=== PATIENT | male | born 1990 | race Caucasian/White ===

== ENCOUNTER 2016-07-11 17:21 | Emergency (ER) | payer SELFPAY ==
[~2016-07-11] VITALS: Ht 193 cm; Wt 98.8 kg
[2016-07-11 17:29] VITALS: BP 141/82; PULSE 85; RESP 16; TEMP 100; O2SAT 99
[2016-07-11] MEDS ORDERED: CLIN1CAP5 PO (17:51)
[2016-07-11] MEDS ORDERED: IBUP800T23 PO (17:51)
--- NOTE | 2016-07-11 17:52 | PD ---
HPI Chief Complaint: Skin Problem Time Seen by Provider: 17:48 Travel History International Travel<30 days: No Contact w/Intl Traveler<30days: No Traveled to known affect area: No History of Present Illness HPI 26-year-old male presents to the emergency department for evaluation of left facial swelling and pain that started today when awakening. Patient denies any fevers. Temp is 100.0 and the emergency department. He does report a history of dental problems. Patient has no chronic medical problems and takes no medications. He is allergic to penicillin. He denies any other complaints at this time. [facility] Past Medical History Diminished Hearing: No Seizures: Yes Social History Alcohol Use: No Tobacco Use: No Substance Use: Yes (POT) Allergies-Medications (Allergen,Severity, Reaction): Coded Allergies: Penicillin (Verified Allergy, Severe, itching, 07/11/16) Reported Meds & Prescriptions Reported Meds & Active Scripts Active No Active Prescriptions or Reported Medications Review of Systems Except as stated in HPI: all other systems reviewed are Neg Physical Exam Narrative GENERAL: Well-developed well-nourished male patient, ambulatory. Afebrile. SKIN: Warm and dry. HEAD: Normocephalic. Atraumatic. Left facial swelling noted. ENT: Mucosa pink and moist. No erythema or exudates. No uvular edema. No uvular , palatal, or tonsillar deviation. Airway patent. Nasal turbinates appear normal without nasal blood, purulent drainage or septal hematoma. Bilateral tympanic membranes are clear without erythema or perforation. Patient has induration and tenderness above tooth #10. He has overall poor dentalgia. EYES: No scleral icterus. No injection or drainage. NECK: Supple, trachea midline. No JVD or lymphadenopathy. CARDIOVASCULAR: Regular rate and rhythm without murmurs, gallops, or rubs. RESPIRATORY: Breath sounds equal bilaterally. No accessory muscle use. Lungs sounds are clear to auscultation. GASTROINTESTINAL: Abdomen soft, non-tender, nondistended. MUSCULOSKELETAL: No cyanosis, or edema. BACK: Nontender without obvious deformity. No CVA tenderness. Data Data Last Documented VS Vital Signs Date Time Temp Pulse Resp B/P Pulse Ox O2 Delivery O2 Flow Rate FiO2 07/11/16 17:29 100.0 85 16 141/82 99 MDM Medical Decision Making Medical Screen Exam Complete: Yes Emergency Medical Condition: Yes Medical Record Reviewed: Yes Differential Diagnosis Dental abscess versus facial cellulitis versus dental caries versus gingivitis Narrative Course 26-year-old male presents to the emergency department for evaluation of pain, facial swelling that started this morning. Physical exam is consistent with a dental abscess. Patient is given first dose of clindamycin in the emergency department. He'll be discharged prescription for clindamycin, ibuprofen. He is encouraged to follow up with a dentist. He is to return for any acute worsening of symptoms. Patient is agreeable. Diagnosis Primary Impression: Dental abscess Referrals: Dentist call for appointment Patient Instructions: Dental Abscess (ED), General Instructions Departure Forms: Tests/Procedures, Work Release Enter return to work date: Jul 14, 2016 Additional Instructions: Take antibiotic as directed until gone. This is cheapest at [facility]. Warm moist compresses. Take ibuprofen as instructed as needed with food for pain. Follow-up with a dentist. Return to the emergency department for any acute worsening of symptoms. Med/Other Pt SpecificInfo: Prescription(s) given Scripts Ibuprofen 800 Mg [id number] Mg PO TID PRN (PAIN SCALE 1 TO 10) #21 TAB Ref 0 Prov:Debbie Carlson 07/11/16 Clindamycin 150 Mg [id number] Mg PO Q6H 10 Days Ref 0 Prov:Debbie Carlson 07/11/16 Disposition: 01 DISCHARGE HOME Condition: Stable Debbie Carlson Jul 11, 2016 17:52
[2016-07-11] MEDS ORDERED: CLINDAMYCIN 150 MG CAP PO ONE (18:00)
[2016-07-11] MEDS ORDERED: KETOROLAC TROMETHAMINE 60 MG/2 ML (IM) VIAL IM ONE (18:00)
== END 2016-07-11 18:03 | disposition home or self-care (01) ==
LOC: PHEFT 17:21
DX: K04.7 Periapical abscess without sinus (principal); R22.0 Localized swelling, mass and lump, head; R51 Headache; Z86.69 Personal history of other diseases of the nervous system and sense organs
CPT/HCPCS: 96372; 99283; J1885

== ENCOUNTER 2016-09-23 09:24 | Emergency (ER) | payer SELFPAY ==
[~2016-09-23] VITALS: Ht 193 cm; Wt 103.0 kg
[~2016-09-23 09:24] MED LIST: CLIN1CAP5 PO; IBUP800T23 PO
[2016-09-23 09:28] VITALS: BP 140/84; PULSE 76; RESP 16; TEMP 98.2; O2SAT 98
[2016-09-23] MEDS ORDERED: CLIN1CAP5 PO (10:07)
[2016-09-23] MEDS ORDERED: TYLETAB34 PO (10:07)
[2016-09-23] MEDS ORDERED: IBUP-232 PO (10:07)
--- NOTE | 2016-09-23 10:07 | PD ---
HPI Chief Complaint: Oral / Dental Pain or Problem Time Seen by Provider: 09:58 Travel History International Travel<30 days: No Contact w/Intl Traveler<30days: No Traveled to known affect area: No History of Present Illness HPI 26-year-old male complains of dental pain. Patient has dental caries for the past 2 years. Patient states that he is unable to afford a dentist. Patient states that he has increasing right upper and right lower gum pain for the past several days. Patient denies any fever chills. Patient states the pain is sharp pain localized to right upper and right lower gum area. Patient denies any pain radiation. On a scale of 1-10 the pain is a 6 PFSH Past Medical History Cardiovascular Problems: Yes (HTN (NO MEDS)) Diminished Hearing: No Immunizations Current: No Seizures: Yes Social History Alcohol Use: No Tobacco Use: No Substance Use: Yes (POT) Allergies-Medications (Allergen,Severity, Reaction): Coded Allergies: Penicillin (Verified Allergy, Severe, itching, 09/23/16) Reported Meds & Prescriptions Reported Meds & Active Scripts Active No Active Prescriptions or Reported Medications Review of Systems General / Constitutional: No: Fever Eyes: No: Visual changes HENT: No: Headaches Cardiovascular: No: Chest Pain or Discomfort Respiratory: No: Shortness of Breath Gastrointestinal: No: Abdominal Pain Genitourinary: No: Dysuria Musculoskeletal: No: Pain Skin: No Rash Neurologic: No: Weakness Psychiatric: No: Depression Endocrine: No: Polydipsia Hematologic/Lymphatic: No: Easy Bruising Physical Exam Narrative GENERAL: Well-nourished, well-developed patient. SKIN: Focused skin assessment warm/dry. HEAD: Normocephalic. EYES: No scleral icterus. No injection or drainage. NECK: Supple, trachea midline. No JVD or lymphadenopathy. CARDIOVASCULAR: Regular rate and rhythm without murmurs, gallops, or rubs. RESPIRATORY: Breath sounds equal bilaterally. No accessory muscle use. GASTROINTESTINAL: Abdomen soft, non-tender, nondistended. MUSCULOSKELETAL: No cyanosis, or edema. BACK: Nontender without obvious deformity. No CVA tenderness. Patient has severe dental caries on the upper and lower gum area and the right side. No soft tissue swelling noted. Data Data Last Documented VS Vital Signs Date Time Temp Pulse Resp B/P Pulse Ox O2 Delivery O2 Flow Rate FiO2 09/23/16 09:28 98.2 76 16 140/84 98 MDM Medical Decision Making Medical Screen Exam Complete: Yes Emergency Medical Condition: Yes Differential Diagnosis Differential diagnosis including dental pain, dental abscess. Narrative Course 26-year-old male with dental pain. Diagnosis Primary Impression: Pain, dental Patient Instructions: General Instructions Additional Instructions: Take medications as directed. Follow-up with a dentist. Med/Other Pt SpecificInfo: Prescription(s) given Scripts Acetaminophen-Codeine (Tylenol-Codeine #3)300-30 mg Tab1 Tab PO Q6HR PRN (PAIN SCALE 1 TO 10) #12 TAB Prov:King Bundy MD 09/23/16 Ibuprofen 600 Mg [id number] Mg PO Q8HR PRN (PAIN) #60 TAB Prov:King Bundy MD 09/23/16 Clindamycin 150 Mg Cap2 Tab PO Q6H #80 CAP Prov:King Bundy MD 09/23/16 Disposition: 01 DISCHARGE HOME Condition: Stable King Bundy MD Sep 23, 2016 10:07
== END 2016-09-23 10:12 | disposition home or self-care (01) ==
LOC: PHEFT 09:24
DX: K08.89 Other specified disorders of teeth and supporting structures (principal)
CPT/HCPCS: 99282

== ENCOUNTER 2016-10-06 02:10 | Emergency (ER) | payer SELFPAY ==
[~2016-10-06] VITALS: Ht 180.3 cm; Wt 88.0 kg
[~2016-10-06 02:10] MED LIST changes: +IBUP-232 PO; -IBUP800T23 PO; +TYLETAB34 PO
[2016-10-06 02:14] VITALS: BP 162/89; PULSE 84; RESP 16; TEMP 98; O2SAT 98
[2016-10-06] MEDS ORDERED: DICL75TA PO (02:49)
[2016-10-06] MEDS ORDERED: MAGICADU2 SWISH-SPIT (02:49)
--- NOTE | 2016-10-06 02:51 | PD ---
HPI Chief Complaint: Oral / Dental Pain or Problem Time Seen by Provider: 02:40 Travel History International Travel<30 days: No Contact w/Intl Traveler<30days: No Traveled to known affect area: No History of Present Illness HPI 26-year-old male presents for evaluation of dental pain. He's had this pain for months. The pain is a aching pain in the left maxillary and mandibular molars which is constant, worse with chewing, radiates to the left ear. He is currently on clindamycin and he also takes ibuprofen for the pain. He was seen at [place] on September 23 and prescribed clindamycin, ibuprofen and Tylenol with Codeine. He says that he cannot afford to see a dentist. No fevers. No new dental trauma. No other complaints. PFSH Past Medical History Cardiovascular Problems: Yes (HTN (NO MEDS)) Diminished Hearing: No Immunizations Current: No Seizures: Yes Social History Alcohol Use: No Tobacco Use: No Substance Use: Yes (POT) Allergies-Medications (Allergen,Severity, Reaction): Coded Allergies: Penicillin (Verified Allergy, Severe, itching, 09/23/16) Reported Meds & Prescriptions Reported Meds & Active Scripts Active Tylenol-Codeine #3 (Acetaminophen-Codeine) 300-30 mg Tab 1 Tab PO Q6HR PRN Ibuprofen 600 Mg Tab 600 Mg PO Q8HR PRN Clindamycin (Clindamycin HCl) 150 Mg Cap 2 Tab PO Q6H Review of Systems General / Constitutional: No: Fever HENT: Positive: Dental Difficulties Physical Exam Narrative GENERAL: Well-developed well-nourished male in no acute distress SKIN: Warm and dry. HEAD: Atraumatic. Normocephalic. EYES: Pupils equal and round. No scleral icterus. No injection or drainage. ENT: No nasal bleeding or discharge. Mucous membranes pink and moist. Multiple areas of dental decay in the mandibular and maxillary molars. There is no trismus, no facial edema, no sublingual edema, no periodontal edema. Tympanic membranes appear normal. NECK: Trachea midline. No JVD. No lymphadenopathy, no submandibular edema Data Data Last Documented VS Vital Signs Date Time Temp Pulse Resp B/P Pulse Ox O2 Delivery O2 Flow Rate FiO2 10/06/16 02:14 98.0 84 16 162/89 98 Room Air Orders Tramadol (Ultram) (10/06/16 03:00) [facility] Medical Decision Making Medical Screen Exam Complete: Yes Emergency Medical Condition: Yes Medical Record Reviewed: Yes Differential Diagnosis Dental caries, pulpitis, pericoronitis, periodontal abscess Narrative Course The patient will be discharged with Magic mouthwash and diclofenac. He is encouraged to follow-up with a dentist for definitive therapy. Diagnosis Primary Impression: Dental caries Additional Instructions: Medication as prescribed. Quit taking ibuprofen. Continue taking clindamycin. Follow up with a dentist for definitive therapy. Return for any emergent medical conditions. Med/Other Pt SpecificInfo: Prescription(s) given Scripts Klpaoclw-Zhjrpgdbnjmkeio-Fbxglxjcx Liq (Magic Mouthwash Adult Liq)120 Ml Susp10 Ml SWISH-SPIT ACHS #120 ML Ref 1 Each 5mL contains: Nystatin 200,000units, Diphenhydramine 4.25mg, Viscous Lidocaine 10mg, Guadalupe syrup 0.8 mL Prov:Deuce Mathew MD 10/06/[address] 75 Mg Tabdr75 Mg PO BID 10 Days Ref 0 Prov:Deuce Mathew MD 10/06/16 Disposition: 01 DISCHARGE HOME Condition: Stable Samuel Rm Oct 06, 2016 02:51
[2016-10-06] MEDS ORDERED: traMADol HCL 50 MG TAB PO ONE (03:00)
== END 2016-10-06 02:59 | disposition home or self-care (01) ==
LOC: NEPK 02:10
DX: K02.9 Dental caries, unspecified (principal)
CPT/HCPCS: 99282

== ENCOUNTER 2017-01-21 16:16 | Emergency (ER) | payer SELFPAY ==
[~2017-01-21] VITALS: Ht 193 cm; Wt 100.0 kg
[~2017-01-21 16:16] MED LIST changes: +DICL75TA PO; +MAGICADU2 SWISH-SPIT
[2017-01-21 16:17] VITALS: BP 134/77; RESP 22; TEMP 98.2; O2SAT 99
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
== END 2017-01-21 19:31 | disposition left against medical advice (07) ==
LOC: NED 16:16
DX: M79.631 Pain in right forearm (principal); M54.5 Low back pain
CPT/HCPCS: 99281

== ENCOUNTER 2017-02-07 18:53 | Emergency (ER) | payer OTHER ==
[~2017-02-07] VITALS: Ht 193 cm; Wt 99.0 kg
[2017-02-07 19:16] VITALS: BP 135/65; PULSE 70; RESP 16; TEMP 98.9; O2SAT 97
[2017-02-07] MEDS ORDERED: MULTTAB4 PO (19:29)
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
== END 2017-02-07 20:27 | disposition home or self-care (01) ==
LOC: PHEFT 18:53
DX: S40.021A Contusion of right upper arm, initial encounter (principal); V03.10XA Pedestrian on foot injured in collision with car, pick-up truck or van in traffic accident, initial encounter; Y92.410 Unspecified street and highway as the place of occurrence of the external cause; Y93.01 Activity, walking, marching and hiking; Z88.0 Allergy status to penicillin
CPT/HCPCS: 73090; 99283